=== PATIENT | male | born 1935 | race Caucasian/White ===

== ENCOUNTER 2017-06-21 05:44 | Inpatient (IN) | payer MEDICARE, OTHER ==
[2017-06-21] MEDS: DEXAMETHASONE 4 MG/ML 1 ML INJ IV (05:00)
[2017-06-21] MEDS: CEFAZOLIN 2 GM/50 ML (PMX) 50 ML IVPB (05:30)
[2017-06-21] MEDS: SOD CHLORIDE 0.9% 1,000 ML IV ×2 (05:30→14:40)
[2017-06-21] MEDS ORDERED: ONDANSETRON 4 MG INJ ×2 (07:00→12:15)
[2017-06-21] MEDS ORDERED: LIDOCAINE 2% (SDV) 5 ML INJ (07:00)
[2017-06-21] MEDS ORDERED: PROPOFOL 20 ML (07:31)
[2017-06-21] MEDS: TRANEXAMIC ACID 1,000 MG in DEXTROSE 5% 90 ML IV (07:31)
[2017-06-21] MEDS ORDERED: EPINEPHrine 1 MG INJ (07:33)
[2017-06-21] MEDS ORDERED: MIDAZOLAM 1 MG/ML 2 ML INJ (07:34)
[2017-06-21] MEDS ORDERED: FENTAnyl 50 MCG/ML VIAL ×2 (07:35→11:45)
[2017-06-21] MEDS ORDERED: PHENYLephrine 10 MG INJ (07:49)
[2017-06-21] MEDS: BACITRACIN 50000 UNITS INJ (08:45)
[2017-06-21] MEDS: POLYMYXIN B 500000 UNIT INJ (08:45)
[2017-06-21] MEDS: ROPIVACAINE 0.2% 60 ML, CLONIDINE 100 MCG, EPINEPHrine 0.3 MG, SOD CHLORIDE 0.9% 50 ML IRR (10:40)
[2017-06-21] MEDS ORDERED: DEXAMETHASONE 4 MG/ML 1 ML INJ ×2 (10:41→10:42)
[2017-06-21] MEDS: TRANEXAMIC ACID 1,000 MG in DEXTROSE 5% 100 ML IVPB ×2 (11:05)
[2017-06-21] MEDS ORDERED: FUROSEMIDE 20 MG INJ (11:25)
[2017-06-21] MEDS ORDERED: CEFAZOLIN 1 GM INJ (11:48)
[2017-06-21] MEDS ORDERED: ROCURONIUM 50 MG INJ (11:48)
[2017-06-21] MEDS: LACTATED RINGER'S 1,000 ML IV* (11:59)
[2017-06-21] MEDS ORDERED: oxyCODONE 5 MG TAB PO (12:00)
[2017-06-21] MEDS ORDERED: NA PHOSPHATE/BIPHOS 133 ML ENEMA PR (12:00)
[2017-06-21] MEDS ORDERED: BISACODYL 10 MG SUPP PR (12:00)
[2017-06-21] MEDS ORDERED: NALOXONE (0.4 MG/ML) INJ IV (12:00)
[2017-06-21] MEDS ORDERED: HYDROmorphONE (0.2 MG/ML) 10ML SYG IV ×3 (12:15→12:30)
[2017-06-21] MEDS: ONDANSETRON 4 MG INJ IV ×2 (12:25→17:28)
[2017-06-21] MEDS: HYDROmorphONE (0.2 MG/ML) 10ML SYG IV ×3 (12:25→12:49)
[2017-06-21] MEDS: ASPIRIN (EC) 325 MG TAB PO (12:28)
[2017-06-21] MEDS: DOCUSATE SODIUM 100 MG CAP PO (12:28)
[2017-06-21] MEDS: ACETAMINOPHEN 1000MG/100ML IV 100 ML IVPB ×2 (12:28→21:04)
[2017-06-21] MEDS ORDERED: ALBUTEROL 0.083% (NEB) 2.5 MG/3 ML AMP HHN (12:30)
[2017-06-21] MEDS ORDERED: METOCLOPRAMIDE 10 MG INJ IV (12:30)
[2017-06-21] MEDS ORDERED: LABETALOL HCL 20MG INJ IV (12:30)
[2017-06-21] MEDS ORDERED: OXYCODONE/ACETAMINOPHEN (5/325) TAB PO (12:30)
[2017-06-21] MEDS ORDERED: hydrALAzine 20 MG INJ IV (12:30)
[2017-06-21] MEDS ORDERED: DIPHENHYDRAMINE 50 MG INJ IV (12:30)
[2017-06-21] MEDS ORDERED: EPHEDrine SULFATE 50 MG/5 ML SYG IV (12:30)
[2017-06-21] MEDS ORDERED: FENTAnyl 50 MCG/ML VIAL IV ×3 (12:30)
[2017-06-21] MEDS ORDERED: ONDANSETRON 4 MG INJ IV (12:30)
[2017-06-21] MEDS ORDERED: MIDAZOLAM 1 MG/ML 2 ML INJ IV (12:30)
[2017-06-21] MEDS ORDERED: MEPERIDINE 25 MG INJ IV (12:30)
[2017-06-21] MEDS: KETOROLAC 30 MG INJ IV (12:41)
[2017-06-21] MEDS: OXYCODONE/ACETAMINOPHEN (5/325) TAB PO (12:41)
[2017-06-21] MEDS: CEFAZOLIN 1 GM/50 ML (PMX) 50 ML IVPB ×3 (13:16→21:59)
[2017-06-21] MEDS: oxyCODONE 5 MG TAB PO ×2 (14:38→17:39)
[2017-06-21] MEDS: GABAPENTIN 300 MG CAP PO (21:03)
[2017-06-22] MEDS: ONDANSETRON 4 MG INJ IV ×2 (00:15→05:52)
[2017-06-22] MEDS: oxyCODONE 5 MG TAB PO ×5 (00:18→18:18)
[2017-06-22] MEDS: SOD CHLORIDE 0.9% 1,000 ML IV ×2 (02:30→15:00)
[2017-06-22] MEDS: ACETAMINOPHEN 1000MG/100ML IV 100 ML IVPB ×3 (04:55→21:14)
[2017-06-22] MEDS: BETHANECHOL 25 MG TAB PO (05:50)
[2017-06-22 05:52] LABS: ADD MAN DIFF? NO
[2017-06-22] MEDS: CEFAZOLIN 1 GM/50 ML (PMX) 50 ML IVPB (05:52)
[2017-06-22 05:58] LABS: WHITE BLOOD COUNT 12.6 10^3/ul (4.8-10.8)
[2017-06-22 05:58] LABS: BASOPHILS % 0.1 % (0.0-2.0); HEMOGLOBIN 11.3 g/dl (14.0-18.0); LYMPHOCYTES # 1.7 10^3/ul (0.8-2.9); LYMPHOCYTES % 13.8 % (15.0-51.0); MEAN CORPUSCULAR HEMOGLOBIN 31.7 pg (29.0-33.0); MEAN CORPUSCULAR HGB CONC 33.2 g/dl (32.0-37.0); MEAN CORPUSCULAR VOLUME 95.5 fl (82.0-101.0); MEAN PLATELET VOLUME 11.7 fl (7.4-10.4); MONOCYTE # 1.2 10^3/ul (0.3-0.9); MONOCYTES % 9.2 % (0.0-11.0); NEUTROPHIL # 9.6 10^3/ul (1.6-7.5); NEUTROPHILS % 76.4 % (39.0-77.0); PLATELET COUNT 192 10^3/UL (140-415); RED BLOOD COUNT 3.56 10^6/ul (4.70-6.10); RED CELL DISTRIBUTION WIDTH 14.7 % (11.5-14.5)
[2017-06-22 06:45] LABS: ANION GAP 11 (8-16); BLOOD UREA NITROGEN 17 mg/dl (7-20); CALCIUM 8.7 mg/dl (8.4-10.2); CARBON DIOXIDE 32 mmol/L (21-31); CHLORIDE 103 mmol/L (97-110); CREATININE 0.82 mg/dl (0.61-1.24); GLUCOSE 122 mg/dl (70-220); POTASSIUM 4.3 mmol/L (3.5-5.1); SODIUM 142 mmol/L (135-144)
[2017-06-22 06:50] LABS: ALANINE AMINOTRANSFERASE 34 IU/L (13-69); ALKALINE PHOSPHATASE 56 IU/L (42-121); ASPARTATE AMINO TRANSFERASE 27 IU/L (15-46); BILIRUBIN,INDIRECT 0.3 mg/dl (0-1.1); BILIRUBIN,TOTAL 0.3 mg/dl (0.2-1.3); MAGNESIUM 2.2 mg/dl (1.7-2.5); TOTAL PROTEIN 6.8 g/dl (6.1-8.1)
[2017-06-22] MEDS: CELECOXIB 200 MG CAP PO ×2 (09:20→21:13)
[2017-06-22] MEDS: FERROUS FUMARATE (SR) TAB PO ×2 (09:20→21:14)
[2017-06-22] MEDS: DOCUSATE SODIUM 100 MG CAP PO ×2 (09:20→21:11)
[2017-06-22] MEDS: ASPIRIN (EC) 325 MG TAB PO (09:20)
[2017-06-22] MEDS: DEXAMETHASONE 10 MG/ML 1 ML INJ IM (09:21)
[2017-06-22] MEDS: LOSARTAN 25 MG TAB PO (09:21)
[2017-06-22] MEDS: CEPASTAT LOZENGE MT (11:15)
[2017-06-22 20:27] LABS: ADD UMIC NO; UR ASCORBIC ACID 40 mg/dL (NEGATIVE); UR BILIRUBIN (Dip) NEGATIVE (NEGATIVE); UR BLOOD (Dip) NEGATIVE (NEGATIVE); UR CLARITY SLIGHTLY CLOUDY (CLEAR); UR COLOR YELLOW (YELLOW); UR GLUCOSE (Dip) 1+ mg/dL (NEGATIVE); UR KETONES (Dip) NEGATIVE (NEGATIVE); UR LEUKOCYTE ESTERASE (Dip) NEGATIVE Leu/ul (NEGATIVE); UR MUCUS MANY /HPF (NONE SEEN); UR NITRITE (Dip) NEGATIVE (NEGATIVE); UR RBC 6 /HPF (0-5); UR SPECIFIC GRAVITY (Dip) 1.031 (1.003-1.030); UR TOTAL PROTEIN (Dip) NEGATIVE (NEGATIVE); UR UROBILINOGEN (Dip) NEGATIVE (NEGATIVE); UR WBC 4 /HPF (0-5)
[2017-06-22] MEDS: GABAPENTIN 300 MG CAP PO (21:14)
[2017-06-22] MEDS: ZOLPIDEM 5 MG TAB PO (22:58)
[2017-06-23] MEDS: oxyCODONE 5 MG TAB PO ×6 (02:46→19:15)
[2017-06-23] MEDS: ACETAMINOPHEN 1000MG/100ML IV 100 ML IVPB (04:21)
[2017-06-23] MEDS: PANTOPRAZOLE (EC) 40 MG TAB PO (06:13)
[2017-06-23] MEDS: DOCUSATE SODIUM 100 MG CAP PO ×2 (09:05→20:06)
[2017-06-23] MEDS: CELECOXIB 200 MG CAP PO ×2 (09:05→20:06)
[2017-06-23] MEDS: FERROUS FUMARATE (SR) TAB PO ×2 (09:05→20:06)
[2017-06-23] MEDS: ASPIRIN (EC) 325 MG TAB PO (09:05)
[2017-06-23] MEDS: LOSARTAN 25 MG TAB PO (09:06)
[2017-06-23 10:50] LABS: ADD MAN DIFF? NO
[2017-06-23 10:55] LABS: WHITE BLOOD COUNT 13.1 10^3/ul (4.8-10.8)
[2017-06-23 10:55] LABS: BASOPHILS % 0.1 % (0.0-2.0); EOSINOPHILS # 0.1 10^3/ul (0.0-0.5); EOSINOPHILS % 0.6 % (0.0-7.0); LYMPHOCYTES # 3.1 10^3/ul (0.8-2.9); LYMPHOCYTES % 23.8 % (15.0-51.0); MEAN CORPUSCULAR HEMOGLOBIN 31.8 pg (29.0-33.0); MEAN CORPUSCULAR HGB CONC 33.3 g/dl (32.0-37.0); MEAN CORPUSCULAR VOLUME 95.4 fl (82.0-101.0); MEAN PLATELET VOLUME 11.9 fl (7.4-10.4); MONOCYTE # 1.3 10^3/ul (0.3-0.9); MONOCYTES % 10.3 % (0.0-11.0); NEUTROPHIL # 8.5 10^3/ul (1.6-7.5); NEUTROPHILS % 64.7 % (39.0-77.0); PLATELET COUNT 212 10^3/UL (140-415); RED BLOOD COUNT 3.46 10^6/ul (4.70-6.10); RED CELL DISTRIBUTION WIDTH 14.8 % (11.5-14.5)
[2017-06-23 11:17] LABS: ANION GAP 12 (8-16); BLOOD UREA NITROGEN 17 mg/dl (7-20); CARBON DIOXIDE 31 mmol/L (21-31); CHLORIDE 103 mmol/L (97-110); CREATININE 0.86 mg/dl (0.61-1.24); GLUCOSE 100 mg/dl (70-220); POTASSIUM 3.8 mmol/L (3.5-5.1); SODIUM 142 mmol/L (135-144)
[2017-06-23] MEDS: hydrALAzine 20 MG INJ IV (20:07)
[2017-06-23] MEDS: GABAPENTIN 300 MG CAP PO (20:08)
[2017-06-24] MEDS: oxyCODONE 5 MG TAB PO ×2 (01:46→04:00)
[2017-06-24 03:29] LABS: AADO2 Arterial 35.3 mmHg (7.0-24.0); Allen Test ACCEPTAB; Arterial Blood Gas Oxygen Sat 93.9 mmHG (95.0-100.0); Arterial COHb 0.5 % (0.0-3.0); Arterial Fraction of Oxyhgb 93.2 % (93.0-99.0); Arterial HCO3 28.9 mmol/L (22.0-26.0); Arterial MetHb 0.2 % (0.0-1.5); Arterial Total Hemglobin 12.8 g/dl (12.0-18.0); MODE ROOM AIR; Site Right Radial
[2017-06-24] MEDS: SOD CHLORIDE 0.9% 500 ML IV (03:30)
[2017-06-24 05:03] LABS: ADD MAN DIFF? NO
[2017-06-24 05:11] LABS: WHITE BLOOD COUNT 12.8 10^3/ul (4.8-10.8)
[2017-06-24 05:11] LABS: BASOPHILS % 0.2 % (0.0-2.0); EOSINOPHILS # 0.3 10^3/ul (0.0-0.5); HEMOGLOBIN 10.6 g/dl (14.0-18.0); LYMPHOCYTES % 15.6 % (15.0-51.0); MEAN CORPUSCULAR HEMOGLOBIN 31.4 pg (29.0-33.0); MEAN CORPUSCULAR HGB CONC 33.1 g/dl (32.0-37.0); MEAN CORPUSCULAR VOLUME 94.7 fl (82.0-101.0); MEAN PLATELET VOLUME 11.8 fl (7.4-10.4); MONOCYTE # 1.3 10^3/ul (0.3-0.9); NEUTROPHIL # 9.2 10^3/ul (1.6-7.5); NEUTROPHILS % 71.8 % (39.0-77.0); PLATELET COUNT 214 10^3/UL (140-415); RED BLOOD COUNT 3.38 10^6/ul (4.70-6.10); RED CELL DISTRIBUTION WIDTH 14.7 % (11.5-14.5)
[2017-06-24 05:28] LABS: ANION GAP 15 (8-16); BLOOD UREA NITROGEN 19 mg/dl (7-20); CALCIUM 8.8 mg/dl (8.4-10.2); CARBON DIOXIDE 33 mmol/L (21-31); CHLORIDE 101 mmol/L (97-110); GLUCOSE 102 mg/dl (70-220); POTASSIUM 3.7 mmol/L (3.5-5.1); SODIUM 145 mmol/L (135-144)
[2017-06-24] MEDS: PANTOPRAZOLE (EC) 40 MG TAB PO (06:10)
[2017-06-24] MEDS: MAGNESIUM HYDROXIDE 30ML CUP PO ×2 (06:10→09:59)
[2017-06-24] MEDS: ASPIRIN (EC) 325 MG TAB PO (08:11)
[2017-06-24] MEDS: CELECOXIB 200 MG CAP PO ×2 (08:11→20:49)
[2017-06-24] MEDS: LOSARTAN 25 MG TAB PO (08:11)
[2017-06-24] MEDS: SENNA/DOCUSATE NA (8.6MG/50MG) TAB PO (08:11)
[2017-06-24] MEDS: DOCUSATE SODIUM 100 MG CAP PO ×2 (08:11→20:49)
[2017-06-24] MEDS: FERROUS FUMARATE (SR) TAB PO ×2 (08:11→20:49)
[2017-06-24] MEDS: FLUTICASONE 0.05% 16 GM NAS SPRAY NASAL (15:18)
[2017-06-24] MEDS: GABAPENTIN 300 MG CAP PO (20:49)
[2017-06-25] MEDS: PANTOPRAZOLE (EC) 40 MG TAB PO (05:13)
[2017-06-25 05:20] LABS: ADD MAN DIFF? NO
[2017-06-25 05:30] LABS: BASOPHILS % 0.2 % (0.0-2.0); EOSINOPHILS # 0.3 10^3/ul (0.0-0.5); EOSINOPHILS % 2.2 % (0.0-7.0); HEMATOCRIT 30.9 % (42.0-52.0); HEMOGLOBIN 10.4 g/dl (14.0-18.0); LYMPHOCYTES # 2.9 10^3/ul (0.8-2.9); LYMPHOCYTES % 19.7 % (15.0-51.0); MEAN CORPUSCULAR HGB CONC 33.7 g/dl (32.0-37.0); MEAN CORPUSCULAR VOLUME 92.2 fl (82.0-101.0); MEAN PLATELET VOLUME 11.5 fl (7.4-10.4); MONOCYTE # 1.4 10^3/ul (0.3-0.9); MONOCYTES % 9.4 % (0.0-11.0); NEUTROPHIL # 10.2 10^3/ul (1.6-7.5); NEUTROPHILS % 67.8 % (39.0-77.0); PLATELET COUNT 227 10^3/UL (140-415); RED BLOOD COUNT 3.35 10^6/ul (4.70-6.10); RED CELL DISTRIBUTION WIDTH 14.4 % (11.5-14.5)
[2017-06-25 06:15] LABS: ANION GAP 10 (8-16); BLOOD UREA NITROGEN 20 mg/dl (7-20); CALCIUM 8.5 mg/dl (8.4-10.2); CARBON DIOXIDE 32 mmol/L (21-31); CHLORIDE 101 mmol/L (97-110); CREATININE 0.92 mg/dl (0.61-1.24); GLUCOSE 105 mg/dl (70-220); POTASSIUM 3.4 mmol/L (3.5-5.1); SODIUM 140 mmol/L (135-144)
[2017-06-25] MEDS: FLUTICASONE 0.05% 16 GM NAS SPRAY NASAL (09:14)
[2017-06-25] MEDS: FERROUS FUMARATE (SR) TAB PO (09:14)
[2017-06-25] MEDS: CELECOXIB 200 MG CAP PO (09:15)
[2017-06-25] MEDS: ASPIRIN (EC) 325 MG TAB PO (09:15)
[2017-06-25] MEDS: LOSARTAN 25 MG TAB PO (09:28)
[2017-06-25] MEDS: oxyCODONE 5 MG TAB PO (09:31)
[2017-06-25 12:13] LABS: MAGNESIUM 2.6 mg/dl (1.7-2.5)
[2017-06-25] MEDS: POTASSIUM CHLORIDE (SR) 20 MEQ TAB PO (14:27)
== END 2017-06-25 16:20 | DRG 470 ==
LOC: REC 05:44 → MS1 13:07
PROC: 0SRC0J9 Replacement of Right Knee Joint with Synthetic Substitute, Cemented, Open Approach (ICD-10-PCS; principal; 2017-06-21 07:30)
PROC: XR2G021 Monitoring of Right Knee Joint using Intraoperative Knee Replacement Sensor, Open Approach, New Technology Group 1 (ICD-10-PCS; 2017-06-21 07:30)
DX: M17.11 Unilateral primary osteoarthritis, right knee (principal); I10 Essential (primary) hypertension; R00.0 Tachycardia, unspecified; R09.82 Postnasal drip; Z85.46 Personal history of malignant neoplasm of prostate
CPT/HCPCS: 36600; 73560; 80048; 80076; 81001; 81003; 82803; 83735; 85025; 86850; 86900; 86901; 87086; 88304; 88311; 93005; 97110; 97116; 97163; 97167; 97530; J1940

== ENCOUNTER → 2018-05-02 | Outpatient (CLI) | payer MEDICARE, OTHER | END | disposition home or self-care (01) | LOC: HKI 10:38 | DX: M25.511 Pain in right shoulder (principal) | CPT/HCPCS: 20610; 73030-RT ==

== ENCOUNTER → 2018-06-17 | Outpatient (CLI) | payer MEDICARE, OTHER | END | disposition home or self-care (01) | LOC: HKI 13:57 | DX: M25.511 Pain in right shoulder (principal) | CPT/HCPCS: G0463 ==

== ENCOUNTER → 2018-06-28 | Outpatient (CLI) | payer MEDICARE, OTHER | END | disposition home or self-care (01) | LOC: HKI 13:47 | DX: M25.511 Pain in right shoulder (principal) | CPT/HCPCS: G0463 ==